=== PATIENT | female | born 1965 | race Caucasian/White ===

== ENCOUNTER 2022-07-04 14:27 | Emergency (ER) | payer BC ==
[~2022-07-04] VITALS: Ht 162.6 cm; Wt 57.0 kg
[2022-07-04 16:15] VITALS: BP 128/79
[2022-07-04] MEDS ORDERED: IBUPROFEN 800 MG TAB PO ONE (16:15)
[2022-07-04] MEDS ORDERED: CEPH-510 PO (16:31)
[2022-07-04] MEDS ORDERED: IBUP800T27 PO (16:31)
== END 2022-07-04 16:34 | disposition home or self-care (01) ==
LOC: ER 14:27
DX: S83.92XA Sprain of unspecified site of left knee, initial encounter (principal); Z79.1 Long term (current) use of non-steroidal anti-inflammatories (NSAID); Z79.899 Other long term (current) drug therapy; V89.2XXA Person injured in unspecified motor-vehicle accident, traffic, initial encounter; Y93.89 Activity, other specified; Y92.89 Other specified places as the place of occurrence of the external cause; Y99.8 Other external cause status
CPT/HCPCS: 73562